=== PATIENT | male | born 1995 ===

== ENCOUNTER 2017-03-14 09:53 | Emergency (ER) | payer SELFPAY ==
[2017-03-14 09:56] VITALS: BP 112/76; PULSE 80; RESP 18; TEMP 98.2; O2SAT 99
--- NOTE | 2017-03-14 10:43 | C.PDOC ---
History Of Present Illness The patient, a 21 y/o male, presents to the ED for evaluation of right thigh pain which began around 1 week ago. Patient notes he began playing baseball around 1 week ago as well. He states his thigh pain is exacerbated with movement. Patient denies direct injury/trauma to the affected area as well as testicular pain, back pain, penile discharge, extremity swelling, and extremity numbness/weakness. Time Seen by Provider: 03/14/17 09:58 Chief Complaint (Nursing): Lower Extremity Problem/Injury History Per: Patient, Family History/Exam Limitations: language barrier Onset/Duration Of Symptoms: Other (1 week ) Current Symptoms Are (Timing): Still Present Additional History Per: Patient - Hip Description Of Injury: denies: Fell, Tripped - Knee Description Of Injury: denies: Fell, Struck With Object, Struck Against Object - Ankle/Foot Description Of Injury: denies: Fell, Struck With Object, Struck Against Object, Twisted Past Medical History Reviewed: Historical Data, Nursing Documentation, Vital Signs Vital Signs: Last Vital Signs Temp 98.2 F 03/14/17 09:55 Pulse 80 03/14/17 09:55 Resp 18 03/14/17 10:55 BP 112/76 03/14/17 09:55 Pulse Ox 99 03/14/17 11:33 - Medical History PMH: No Chronic Diseases Surgical History: No Surg Hx Family History: States: Unknown Family Hx - Social History Hx Alcohol Use: Yes Hx Substance Use: No - Immunization History Hx Tetanus Toxoid Vaccination: No Hx Influenza Vaccination: No Hx Pneumococcal Vaccination: No Review Of Systems Except As Marked, All Systems Reviewed And Found Negative. Genitourinary: Negative for: Other (testicular pain ) Musculoskeletal: Positive for: Other (+right thigh pain ). Negative for: Back Pain Neurological: Negative for: Weakness, Numbness Physical Exam - Physical Exam Appears: Non-toxic, No Acute Distress Skin: Normal Color, Warm, Dry, No Ecchymosis Head: Atraumatic Eye(s): bilateral: Normal Inspection, EOMI Nose: Normal Oral Mucosa: Moist Neck: Normal ROM, Supple Lymphatic: Normal Exam, No Adenopathy, No Inguinal Node Tenderness Chest: Symmetrical Respiratory: No Accessory Muscle Use Gastrointestinal/Abdominal: Normal Exam, Soft, No Tenderness Back: No CVA Tenderness, No Vertebral Tenderness Male Genital: Normal Inspection, No Testicular Tenderness, No Testicular Swelling Extremity: Normal ROM (Pt stands up and sits down without evidence of distress) , Tenderness (to right anterior thigh on palpation ), No Calf Tenderness, Capillary Refill (less than 2 seconds ), No Deformity, No Swelling Extremity: Bilateral: Atraumatic, Normal Color And Temperature, Normal ROM Pulses: Left Dorsalis Pedis: Normal, Right Dorsalis Pedis: Normal Neurological/Psych: Oriented x3, Normal Speech, Normal Cognition, Normal Motor, Normal Sensation Gait: Steady ED Course And Treatment O2 Sat by Pulse Oximetry: 99 (on RA) Pulse Ox Interpretation: Normal - Other Rad Right Femur XR X-Ray: Interpreted by Me, Viewed By Me, Read By Radiologist Interpretation: Accession No. : [id number]. Patient Name / ID : PEG GARCIA / [id number]. Exam Date : 03/14/2017 10:28:06 ( Approved ). Study Comment : Sex / Age : M / 21Y. Creator : Ander Sal MD. Dictator : Ander Sal MD. Bonsai Tender : Rag Sorter : Ander Sal MD. Approver2 : Report Date : 03/14/2017 11:05:39. My Comment : . PROCEDURE: Right femur. HISTORY: Posttraumatic right hip pain. COMPARISON: None. TECHNIQUE: Standard protocol for this study/examination. FINDINGS: There are no osseous abnormalities to suggest fracture. The pelvic ring is intact. Preserved femoral-acetabular relationship. Negative study for protrusio, subluxation or dislocation. Degenerative changes: None. IMPRESSION: No acute findings related to/accounting for the clinical presentation. Progress Note: Right Femur XR ordered and reviewed. Patient received Motrin PO. On reassessment, patient is resting comfortably, showing no signs of distress, and reports an improvement in his pain. Patient is stable for discharge from the ED. He is given instructions on RICE and is advised to properly stretch before playing sports. He is advised to follow up with PMD within 2-5 days for further evaluation. Reassessment Condition: Improved Disposition - Disposition Referrals: [facility] at [facility] [Outside] Disposition: HOME/ ROUTINE Disposition Time: 10:42 Condition: STABLE Additional Instructions: Vaya a harris mdico o la clnica en 2-5 byers sin falta, para mas evaluacin. [place] los medicamentos ivon indicado. Volver a la ely de emergencia en cualquier momento si los sntomas persisten o empeoran. Prescriptions: Ibuprofen [Motrin] 600 mg PO Q6 PRN #20 tab PRN Reason: Pain, Mild (1-3) Instructions: Muscle Strain (ED) Print Language: MONGOLIAN - Clinical Impression Clinical Impression: Muscle strain - PA / WOOD BARKER / Resident Statement MD/DO has reviewed & agrees with the documentation as recorded. - Scribe Statement The provider has reviewed the documentation as recorded by the Scribe (Dahiana Garcia) All medical record entries made by the Scribe were at my direction and personally dictated by me. I have reviewed the chart and agree that the record accurately reflects my personal performance of the history, physical exam, medical decision making, and the department course for this patient. I have also personally directed, reviewed, and agree with the discharge instructions and disposition.
--- NOTE | 2017-03-14 11:07 | RAD ---
PROCEDURE: Right femur HISTORY: Posttraumatic right hip pain COMPARISON: None TECHNIQUE: Standard protocol for this study/examination. FINDINGS: There are no osseous abnormalities to suggest fracture. The pelvic ring is intact. Preserved femoral-acetabular relationship. Negative study for protrusio, subluxation or dislocation. Degenerative changes: None. IMPRESSION: No acute findings related to/accounting for the clinical presentation.
== END 2017-03-14 10:55 | disposition home or self-care (01) ==
LOC: C.ER 09:53
DX: S76.911A Strain of unspecified muscles, fascia and tendons at thigh level, right thigh, initial encounter (principal); X50.0XXA Overexertion from strenuous movement or load, initial encounter; Y93.89 Activity, other specified; Y92.89 Other specified places as the place of occurrence of the external cause